=== PATIENT | female | born 1965 | race Caucasian/White ===

== ENCOUNTER 2025-07-15 12:21 | Outpatient (CLI) | payer OTHER, MEDICAID | END 2025-07-15 12:22 | disposition home or self-care (01) | LOC: CSHMRI 12:21 | PROVIDERS: ATTEND Internal Medicine Medical Oncology | DX: Z08 Encounter for follow-up examination after completed treatment for malignant neoplasm (principal); Z85.3 Personal history of malignant neoplasm of breast; N64.59 Other signs and symptoms in breast | CPT/HCPCS: C8908 ==